=== PATIENT | male | born 1945 | race Caucasian/White ===

== ENCOUNTER 2020-10-09 15:11 | Inpatient (IN) | payer MEDICARE, OTHER ==
[~2020-10-09] VITALS: Ht 175.3 cm; Wt 136.7 kg
[2020-10-09 15:55] LABS: BASOPHILS % (AUTO) 0.3 % (0.0-5.0); EOSINOPHILS % (AUTO) 0.2 % (0.0-8.0); HEMATOCRIT 47.7 % (42-54); LYMPHOCYTES % (AUTO) 6.1 % (21.0-51.0); MEAN CORPUSCULAR HEMOGLOBIN 29.4 pg (27.0-33.0); MEAN CORPUSCULAR HGB CONC 33.5 g/dL (32.0-36.0); MEAN CORPUSCULAR VOLUME 87.7 fL (79-99); MONOCYTES % (AUTO) 5.5 % (3.0-13.0); NEUTROPHILS % (AUTO) 87.4 % (40.0-77.0); PLATELET COUNT (AUTO) 250 K/uL (130-400); RED BLOOD CELL COUNT(AUTO) 5.44 MIL/uL (4.50-6.20); RED CELL DISTRIBUTION WIDTH 13.8 % (11.0-15.5); WHITE BLOOD COUNT (AUTO) 18.3 K/uL (4.8-10.8)
[2020-10-09 15:59] LABS: APPEARANCE,URINE Clear (CLEAR); BILIRUBIN,URINE Negative (NEGATIVE); COLOR,URINE Yellow (YELLOW); GLUCOSE, URINE (UA) Negative (NEGATIVE); KETONES,URINE Negative (NEGATIVE); LEUKOCYTE ESTERASE ,URINE Negative (NEGATIVE); NITRATE,URINE Negative (NEGATIVE); OCCULT BLOOD,URINE Negative (NEGATIVE); PROTEIN,URINE POS 1+ mg/dL (NEGATIVE); UROBILINOGEN,URINE 0.2 mg/dL (0.2-1.0)
[2020-10-09 16:05] LABS: CREATININE 1.2 mg/dL (0.5-1.5); POTASSIUM 4.5 mmol/L (3.5-5.1)
[2020-10-09 16:06] LABS: BACTERIA,URINE Rare /HPF (None Seen); RBC,URINE 0-1 /HPF (0-1); SQUAMOUS EPITHELIAL CELL,UR Few /HPF (0-2); WBC,URINE 0-1 /HPF (0-1)
[2020-10-09 16:07] LABS: INR 1.12 (0.85-1.15); PROTHROMBIN TIME 11.9 SEC (9.6-11.6)
[2020-10-09 16:08] LABS: PARTIAL THROMBOPLASTIN TIME 27.4 SEC (26.3-35.5)
[2020-10-09 16:11] LABS: ALBUMIN 3.9 g/dL (3.5-5.0); BILIRUBIN,TOTAL 0.6 mg/dL (0.2-1.0); TOTAL PROTEIN, SERUM 8.7 g/dL (6.0-8.3)
[2020-10-09] MEDS ORDERED: MORPHINE 4 MG SYG ONE ×2 (16:52→19:03)
[2020-10-09] MEDS ORDERED: ONDANSETRON 4MG INJ ONE ×2 (16:52→19:06)
[2020-10-09 17:15] LABS: ABG BASE EXCESS -0.1 mmol/L (-2.0-3.0); ABG HCO3 24.3 mmol/L (21.0-28.0); ABG OXYGEN SATURATION 93.7 % (95.0-99.0); ABG PCO2 39 mmHg (35-48)
[2020-10-09] MEDS ORDERED: GUAIFENESIN-DM 200/20 MG 10 ML PO PRN (20:15)
[2020-10-09] MEDS: 0.9%NACL 1000ML 1,000 ML IV SCH (20:15)
[2020-10-09] MEDS: CEFTRIAXONE 1G VIAL IVP SCH (20:15)
[2020-10-09] MEDS ORDERED: ONDANSETRON 4MG INJ IV PRN (20:15)
[2020-10-09] MEDS ORDERED: NITROGLYCERIN 0.4 MG SL TAB SL PRN (20:15)
[2020-10-09] MEDS ORDERED: ACETAMINOPHEN 325 MG TAB PO PRN ×2 (20:15)
[2020-10-09] MEDS ORDERED: MORPHINE 2 MG SYG IV PRN (20:15)
[2020-10-09] MEDS: FAMOTIDINE 20MG VIAL IV SCH (21:00)
[2020-10-09] MEDS ORDERED: LISI40TA9 PO (22:41)
[2020-10-09] MEDS ORDERED: DILT360T14 PO (22:41)
[2020-10-09] MEDS ORDERED: TYL3B PO (22:41)
[2020-10-09] MEDS ORDERED: AEC81 PO (22:41)
[2020-10-09] MEDS ORDERED: ATEN25TA PO (22:41)
[2020-10-09] MEDS ORDERED: MORPHINE 2 MG SYG ONE (22:44)
[2020-10-09] MEDS: AZITHROMYCIN 500MG+NS 250ML 250 ML IV SCH (23:15)
[2020-10-09] MEDS ORDERED: DEXAMETHASONE SOD PHOSPHATE 10MG/ML 1ML VIAL ONE (23:28)
[2020-10-09] MEDS ORDERED: CEFTRIAXONE 1G VIAL ONE (23:28)
[2020-10-10] MEDS ORDERED: FAMOTIDINE 20MG VIAL IV ONE ×2 (02:45→22:17)
[2020-10-10] MEDS ORDERED: AZITHROMYCIN 500MG+NS 250ML 250 ML IV ONE (02:45)
[2020-10-10] MEDS ORDERED: 0.9%NACL 1000ML 1,000 ML IV ONE (02:49)
[2020-10-10 05:30] LABS: BASOPHILS % (AUTO) 0.2 % (0.0-5.0); HEMATOCRIT 43.4 % (42-54); LYMPHOCYTES % (AUTO) 3.9 % (21.0-51.0); MEAN CORPUSCULAR HEMOGLOBIN 29.1 pg (27.0-33.0); MEAN CORPUSCULAR HGB CONC 33.2 g/dL (32.0-36.0); MEAN CORPUSCULAR VOLUME 87.9 fL (79-99); MONOCYTES % (AUTO) 1.1 % (3.0-13.0); PLATELET COUNT (AUTO) 222 K/uL (130-400); RED BLOOD CELL COUNT(AUTO) 4.94 MIL/uL (4.50-6.20); RED CELL DISTRIBUTION WIDTH 13.9 % (11.0-15.5); WHITE BLOOD COUNT (AUTO) 19.1 K/uL (4.8-10.8)
[2020-10-10 06:24] LABS: HEMOGLOBIN A1C 6.1 % (4.0-6.0)
[2020-10-10 07:19] LABS: ALANINE AMINOTRANSFERASE 14 U/L (12-78); ALBUMIN 3.4 g/dL (3.5-5.0); ASPARTATE AMINOTRANSFERASE 16 U/L (10-37); BILIRUBIN,TOTAL 0.5 mg/dL (0.2-1.0); CARBON DIOXIDE 25 mmol/L (21-32); CHLORIDE 102 mmol/L (101-111); CHOLESTEROL 131 mg/dL (<200); CREATINE KINASE, TOTAL 106 U/L (21-232); CREATININE 1.1 mg/dL (0.5-1.5); GLOMERULAR FILTR. RATE CALC 70 mL/min (>60); GLUCOSE,RANDOM 152 mg/dL (70-105); HDL CHOLESTEROL 52 mg/dL (29-71); LDL DIRECT 71 mg/dL (0-99); MYOGLOBIN 87 ng/mL (10-92); POTASSIUM 4.8 mmol/L (3.5-5.1); SODIUM SERUM 139 mmol/L (136-145); THYROID STIMULATING HORMONE 0.38 uIU/mL (0.36-3.74); TOTAL PROTEIN, SERUM 6.9 g/dL (6.0-8.3); TRIGLYCERIDES 55 mg/dL (30-200); TROPONIN I < 0.04 ng/mL (0.00-0.06); UREA NITROGEN, BLOOD 19 mg/dL (7-18)
[2020-10-10] MEDS: CEFTRIAXONE 1G VIAL IVP SCH ×2 (08:15→20:15)
[2020-10-10] MEDS: DILTIAZEM 180MG SR CAP PO SCH (09:00)
[2020-10-10] MEDS: ASPIRIN 81 MG EC TAB PO SCH (09:00)
[2020-10-10] MEDS: ATENOLOL 25 MG TABLET PO SCH (09:00)
[2020-10-10] MEDS: LISINOPRIL 40 MG TABLET PO SCH (09:00)
[2020-10-10] MEDS: ENOXAPARIN SODIUM 30 MG/0.3 ML SQ SCH (09:00)
[2020-10-10] MEDS: FAMOTIDINE 20MG VIAL IV SCH ×2 (09:00→21:00)
[2020-10-10] MEDS: PANTOPRAZOLE 40 MG TAB DR PO SCH (12:30)
[2020-10-10 15:28] LABS: CRP QUANTITATIVE 230.5 mg/L (0.00-9.0)
[2020-10-10] MEDS: 0.9%NACL 1000ML 1,000 ML IV SCH (16:15)
[2020-10-10] MEDS ORDERED: PANTOPRAZOLE 40 MG TAB DR ONE (16:24)
[2020-10-10] MEDS ORDERED: ATENOLOL 25 MG TABLET ONE (16:24)
[2020-10-10] MEDS ORDERED: CEFTRIAXONE 1G VIAL ONE (22:16)
[2020-10-10] MEDS: AZITHROMYCIN 500MG+NS 250ML 250 ML IV SCH (23:15)
[2020-10-11] MEDS ORDERED: AZITHROMYCIN 500MG+NS 250ML 250 ML IV ONE (04:20)
[2020-10-11 05:02] LABS: BASOPHILS % (AUTO) 0.1 % (0.0-5.0); HEMATOCRIT 41.4 % (42-54); LYMPHOCYTES % (AUTO) 6.4 % (21.0-51.0); MEAN CORPUSCULAR HEMOGLOBIN 29.4 pg (27.0-33.0); MEAN CORPUSCULAR HGB CONC 33.3 g/dL (32.0-36.0); MEAN CORPUSCULAR VOLUME 88.1 fL (79-99); MONOCYTES % (AUTO) 3.9 % (3.0-13.0); PLATELET COUNT (AUTO) 221 K/uL (130-400); RED CELL DISTRIBUTION WIDTH 13.5 % (11.0-15.5); WHITE BLOOD COUNT (AUTO) 21.1 K/uL (4.8-10.8)
[2020-10-11 05:22] LABS: CARBON DIOXIDE 31 mmol/L (21-32); CHLORIDE 102 mmol/L (101-111); CREATININE 1.2 mg/dL (0.5-1.5); GLOMERULAR FILTR. RATE CALC 63 mL/min (>60); GLUCOSE,RANDOM 144 mg/dL (70-105); LACTATE DEHYDROGENASE 149 U/L (81-234); POTASSIUM 4.8 mmol/L (3.5-5.1); SODIUM SERUM 138 mmol/L (136-145); UREA NITROGEN, BLOOD 21 mg/dL (7-18)
[2020-10-11] MEDS: CEFTRIAXONE 1G VIAL IVP SCH ×2 (08:15→22:39)
[2020-10-11] MEDS ORDERED: ASPIRIN 81MG CHEW TAB ONE (08:43)
[2020-10-11] MEDS ORDERED: PANTOPRAZOLE 40 MG TAB DR ONE (08:44)
[2020-10-11] MEDS ORDERED: ENOXAPARIN SODIUM 30 MG/0.3 ML SQ ONE (08:44)
[2020-10-11] MEDS ORDERED: FAMOTIDINE 20MG VIAL IV ONE (08:45)
[2020-10-11] MEDS: FAMOTIDINE 20MG VIAL IV SCH ×2 (09:00→22:39)
[2020-10-11] MEDS: ATENOLOL 25 MG TABLET PO SCH (09:00)
[2020-10-11] MEDS: PANTOPRAZOLE 40 MG TAB DR PO SCH (09:00)
[2020-10-11] MEDS: LISINOPRIL 40 MG TABLET PO SCH (09:00)
[2020-10-11] MEDS: ASPIRIN 81 MG EC TAB PO SCH (09:00)
[2020-10-11] MEDS: DILTIAZEM 180MG SR CAP PO SCH (09:00)
[2020-10-11] MEDS: ENOXAPARIN SODIUM 30 MG/0.3 ML SQ SCH (09:00)
[2020-10-11] MEDS ORDERED: CEFTRIAXONE 1G VIAL ONE (11:41)
[2020-10-11] MEDS ORDERED: 0.9%NACL 1000ML 1,000 ML IV ONE (11:41)
[2020-10-11] MEDS: 0.9%NACL 1000ML 1,000 ML IV SCH (12:15)
[2020-10-11] MEDS ORDERED: ATENOLOL 25 MG TABLET ONE (17:04)
[2020-10-11] MEDS ORDERED: LACTULOSE 20 GM/30 ML UDCUP ONE (17:21)
[2020-10-11] MEDS ORDERED: ACETAMINOPHEN 325 MG TAB ONE (17:22)
[2020-10-11] MEDS ORDERED: LACTULOSE 20 GM/30 ML UDCUP PO PRN (18:00)
[2020-10-11 21:55] VITALS: BP 128/73
[2020-10-11] MEDS: AZITHROMYCIN 500MG+NS 250ML 250 ML IV SCH (22:56)
[2020-10-12 03:52] VITALS: BP 103/60
[2020-10-12 05:20] LABS: BASOPHILS % (AUTO) 0.1 % (0.0-5.0); HEMATOCRIT 40.3 % (42-54); LYMPHOCYTES % (AUTO) 9.2 % (21.0-51.0); MEAN CORPUSCULAR HEMOGLOBIN 28.8 pg (27.0-33.0); MEAN CORPUSCULAR HGB CONC 32.3 g/dL (32.0-36.0); MEAN CORPUSCULAR VOLUME 89.4 fL (79-99); MONOCYTES % (AUTO) 5.7 % (3.0-13.0); NEUTROPHILS % (AUTO) 84.3 % (40.0-77.0); PLATELET COUNT (AUTO) 229 K/uL (130-400); RED BLOOD CELL COUNT(AUTO) 4.51 MIL/uL (4.50-6.20); RED CELL DISTRIBUTION WIDTH 13.7 % (11.0-15.5); WHITE BLOOD COUNT (AUTO) 14.8 K/uL (4.8-10.8)
[2020-10-12 05:39] LABS: CREATININE 1.2 mg/dL (0.5-1.5); CRP QUANTITATIVE 49.2 mg/L (0.00-9.0); POTASSIUM 4.1 mmol/L (3.5-5.1)
[2020-10-12 08:03] VITALS: BP 141/73
[2020-10-12] MEDS: CEFTRIAXONE 1G VIAL IVP SCH ×2 (09:42→20:36)
[2020-10-12] MEDS: DILTIAZEM 180MG SR CAP PO SCH (09:43)
[2020-10-12] MEDS: ATENOLOL 25 MG TABLET PO SCH (09:43)
[2020-10-12] MEDS: PANTOPRAZOLE 40 MG TAB DR PO SCH (09:43)
[2020-10-12] MEDS: LISINOPRIL 40 MG TABLET PO SCH (09:43)
[2020-10-12] MEDS: ASPIRIN 81 MG EC TAB PO SCH (09:44)
[2020-10-12] MEDS: 0.9%NACL 1000ML 1,000 ML IV SCH (09:44)
[2020-10-12] MEDS: ENOXAPARIN SODIUM 30 MG/0.3 ML SQ SCH (09:44)
[2020-10-12] MEDS: FAMOTIDINE 20MG VIAL IV SCH ×2 (10:21→20:36)
[2020-10-12 11:05] VITALS: BP 138/71
[2020-10-12 16:30] VITALS: BP 132/70
[2020-10-12 19:52] VITALS: BP 126/61
[2020-10-12] MEDS: AZITHROMYCIN 500MG+NS 250ML 250 ML IV SCH (22:38)
[2020-10-12 23:31] VITALS: BP 138/67
[2020-10-13] MEDS: 0.9%NACL 1000ML 1,000 ML IV SCH (02:19)
[2020-10-13 03:59] VITALS: BP 120/58
[2020-10-13 05:29] LABS: BASOPHILS % (AUTO) 0.4 % (0.0-5.0); EOSINOPHILS % (AUTO) 0.6 % (0.0-8.0); HEMATOCRIT 40.5 % (42-54); LYMPHOCYTES % (AUTO) 20.4 % (21.0-51.0); MEAN CORPUSCULAR HEMOGLOBIN 28.5 pg (27.0-33.0); MEAN CORPUSCULAR HGB CONC 32.3 g/dL (32.0-36.0); MONOCYTES % (AUTO) 7.3 % (3.0-13.0); NEUTROPHILS % (AUTO) 69.8 % (40.0-77.0); PLATELET COUNT (AUTO) 234 K/uL (130-400); RED CELL DISTRIBUTION WIDTH 13.8 % (11.0-15.5); WHITE BLOOD COUNT (AUTO) 10.8 K/uL (4.8-10.8)
[2020-10-13 06:06] LABS: BILIRUBIN,TOTAL 0.2 mg/dL (0.2-1.0); CREATININE 1.1 mg/dL (0.5-1.5); CRP QUANTITATIVE 24.1 mg/L (0.00-9.0); POTASSIUM 3.7 mmol/L (3.5-5.1); TOTAL PROTEIN, SERUM 6.6 g/dL (6.0-8.3)
[2020-10-13 08:39] VITALS: BP 115/51
[2020-10-13] MEDS ORDERED: AZIT500T4 PO (08:54)
[2020-10-13] MEDS ORDERED: CEPH500B PO (08:54)
[2020-10-13] MEDS: DILTIAZEM 180MG SR CAP PO SCH (09:00)
[2020-10-13] MEDS: LISINOPRIL 40 MG TABLET PO SCH (09:00)
[2020-10-13] MEDS: ATENOLOL 25 MG TABLET PO SCH (09:00)
[2020-10-13] MEDS: PANTOPRAZOLE 40 MG TAB DR PO SCH (09:34)
[2020-10-13] MEDS: FAMOTIDINE 20MG VIAL IV SCH (09:34)
[2020-10-13] MEDS: ASPIRIN 81 MG EC TAB PO SCH (09:34)
[2020-10-13] MEDS: CEFTRIAXONE 1G VIAL IVP SCH (09:34)
[2020-10-13] MEDS: ENOXAPARIN SODIUM 30 MG/0.3 ML SQ SCH (09:36)
== END 2020-10-13 12:00 | disposition home or self-care (01) | DRG 193 ==
LOC: EDH 15:11 → EDHIP 20:02 → 3AH 10-11 21:13
PROVIDERS: ADMIT Internal Medicine; ATTEND Internal Medicine
PROC: 5A09357 Assistance with Respiratory Ventilation, Less than 24 Consecutive Hours, Continuous Positive Airway Pressure (ICD-10-PCS; principal; 2020-10-12)
PROC: 5A09357 Assistance with Respiratory Ventilation, Less than 24 Consecutive Hours, Continuous Positive Airway Pressure (ICD-10-PCS; 2020-10-13)
DX: R09.1 Pleurisy (principal); J15.6 Pneumonia due to other Gram-negative bacteria; Z68.41 Body mass index [BMI] 40.0-44.9, adult; J98.11 Atelectasis; J40 Bronchitis, not specified as acute or chronic; E66.01 Morbid (severe) obesity due to excess calories; E78.5 Hyperlipidemia, unspecified; N20.0 Calculus of kidney; G47.33 Obstructive sleep apnea (adult) (pediatric); I45.10 Unspecified right bundle-branch block; I48.0 Paroxysmal atrial fibrillation; K21.9 Gastro-esophageal reflux disease without esophagitis; K57.90 Diverticulosis of intestine, part unspecified, without perforation or abscess without bleeding; Z90.49 Acquired absence of other specified parts of digestive tract; Z20.822 Contact with and (suspected) exposure to COVID-19
CPT/HCPCS: 36415; 36600; 71045; 71250; 74176; 78582; 80048; 80053; 80061; 81001; 82550; 82728; 82803; 83036; 83605; 83615; 83735; 83874; 83880; 84145; 84443; 84484; 85025; 85060; 85378; 85610; 85730; 86140; 87040; 87426; 88184; 88185; 93005; 93306; 93356; 93970; A9540; A9558; G0378; J0456; J0696; J1100; J1650; J2270; J2405; J3490; J7030; U0003

== ENCOUNTER 2020-10-26 10:57 | Inpatient (IN) | payer MEDICARE ==
[~2020-10-26] VITALS: Ht 175.3 cm; Wt 136.5 kg
[~2020-10-26 10:57] MED LIST: AEC81 PO; ATEN25TA PO; AZIT500T4 PO; CEPH500B PO; DILT360T14 PO; LISI40TA9 PO; TYL3B PO
[2020-10-26 11:45] LABS: BASOPHILS % (AUTO) 0.4 % (0.0-5.0); EOSINOPHILS % (AUTO) 2.1 % (0.0-8.0); HEMATOCRIT 44.6 % (42-54); LYMPHOCYTES % (AUTO) 15.7 % (21.0-51.0); MEAN CORPUSCULAR HEMOGLOBIN 28.5 pg (27.0-33.0); MEAN CORPUSCULAR HGB CONC 33.4 g/dL (32.0-36.0); MEAN CORPUSCULAR VOLUME 85.3 fL (79-99); MONOCYTES % (AUTO) 5.6 % (3.0-13.0); NEUTROPHILS % (AUTO) 75.8 % (40.0-77.0); PLATELET COUNT (AUTO) 238 K/uL (130-400); RED BLOOD CELL COUNT(AUTO) 5.23 MIL/uL (4.50-6.20); RED CELL DISTRIBUTION WIDTH 13.5 % (11.0-15.5); WHITE BLOOD COUNT (AUTO) 4.8 K/uL (4.8-10.8)
[2020-10-26 11:52] LABS: CARBON DIOXIDE 29 mmol/L (21-32); CHLORIDE 103 mmol/L (101-111); GLOMERULAR FILTR. RATE CALC 78 mL/min (>60); GLUCOSE,RANDOM 142 mg/dL (70-105); POTASSIUM 3.1 mmol/L (3.5-5.1); SODIUM SERUM 142 mmol/L (136-145); UREA NITROGEN, BLOOD 18 mg/dL (7-18)
[2020-10-26 11:57] LABS: INR 1.19 (0.85-1.15); PROTHROMBIN TIME 12.5 SEC (9.6-11.6)
[2020-10-26 11:58] LABS: PARTIAL THROMBOPLASTIN TIME 31.3 SEC (26.3-35.5)
[2020-10-26 12:04] LABS: ALANINE AMINOTRANSFERASE 35 U/L (12-78); ALBUMIN 3.1 g/dL (3.5-5.0); ASPARTATE AMINOTRANSFERASE 36 U/L (10-37); BILIRUBIN,TOTAL 0.4 mg/dL (0.2-1.0); CREATINE KINASE, TOTAL 166 U/L (21-232); MYOGLOBIN 139 ng/mL (10-92); TOTAL PROTEIN, SERUM 7.6 g/dL (6.0-8.3); TROPONIN I < 0.04 ng/mL (0.00-0.06)
[2020-10-26 12:42] LABS: ERYTHROCYTE SEDIMENTATION RATE 42 MM/HR (0-20)
[2020-10-26] MEDS ORDERED: ALBUTEROL INHALER 90MCG/INH IH ONE (13:05)
[2020-10-26] MEDS ORDERED: AZITHROMYCIN 500MG+NS 250ML 250 ML IV ONE (13:05)
[2020-10-26] MEDS ORDERED: SOLU-MEDROL 40MG VIAL ONE (13:05)
[2020-10-26] MEDS ORDERED: ENOXAPARIN SODIUM 120 MG/0.8ML SQ ONE (13:06)
[2020-10-26] MEDS ORDERED: FAMOTIDINE 20MG VIAL IV ONE (13:07)
[2020-10-26] MEDS ORDERED: GUAIFENESIN-DM 200/20 MG 10 ML PO PRN (17:45)
[2020-10-26] MEDS ORDERED: DOXYCYCLINE 100MG+NS 250ML IV SCH (17:45)
[2020-10-26] MEDS ORDERED: ONDANSETRON 4MG INJ IVP PRN (17:45)
[2020-10-26] MEDS: CEFTRIAXONE 1G VIAL IVP SCH (17:45)
[2020-10-26] MEDS ORDERED: ACETAMINOPHEN 325 MG TAB PO PRN (17:45)
[2020-10-26] MEDS: DEXAMETHASONE SOD PHOSPHATE 4 MG/ML 1ML VIAL IVP SCH (17:45)
[2020-10-26] MEDS ORDERED: ERGOCALCIFEROL (VITAMIN D2) 50,000 UNIT CAPSULE PO ONE (17:45)
[2020-10-26] MEDS ORDERED: PHARMACY COMMUNICATION MISC SCH (18:00)
[2020-10-26] MEDS: PHARMACY COMMUNICATION MISC SCH (18:45)
[2020-10-26 18:49] LABS: CREATINE KINASE, TOTAL 146 U/L (21-232); MYOGLOBIN 99 ng/mL (10-92); TROPONIN I < 0.04 ng/mL (0.00-0.06)
[2020-10-26] MEDS ORDERED: DOXYCYCLINE 100MG+NS 250ML 250 ML IV ONE (20:04)
[2020-10-26] MEDS ORDERED: ACETYLCYSTEINE 600 MG CAPSULE ONE (20:04)
[2020-10-26] MEDS ORDERED: CEFTRIAXONE 1G VIAL ONE (20:04)
[2020-10-26] MEDS ORDERED: ERGOCALCIFEROL (VITAMIN D2) 50,000 UNIT CAPSULE ONE (20:04)
[2020-10-26] MEDS ORDERED: FAMOTIDINE 20MG TAB ONE (20:04)
[2020-10-26] MEDS ORDERED: PHARMACY COMMUNICATION**REMDESIVIR ORDER MISC SCH (20:15)
[2020-10-26] MEDS: DOXYCYCLINE 100MG+NS 250ML 250 ML IV SCH (21:00)
[2020-10-26] MEDS: ACETYLCYSTEINE 600 MG CAPSULE PO SCH (21:00)
[2020-10-26] MEDS: FAMOTIDINE 20MG TAB PO SCH (21:00)
[2020-10-27] MEDS ORDERED: 0.9% NACL 250ML 250 ML IV ONE (00:58)
[2020-10-27 03:31] LABS: CREATINE KINASE, TOTAL 141 U/L (21-232); MYOGLOBIN 102 ng/mL (10-92); TROPONIN I < 0.04 ng/mL (0.00-0.06)
[2020-10-27 05:18] LABS: HEMATOCRIT 42.5 % (42-54); LYMPHOCYTES % (AUTO) 19.1 % (21.0-51.0); MEAN CORPUSCULAR HEMOGLOBIN 28.2 pg (27.0-33.0); MEAN CORPUSCULAR HGB CONC 33.4 g/dL (32.0-36.0); MEAN CORPUSCULAR VOLUME 84.5 fL (79-99); MONOCYTES % (AUTO) 2.8 % (3.0-13.0); NEUTROPHILS % (AUTO) 77.8 % (40.0-77.0); PLATELET COUNT (AUTO) 251 K/uL (130-400); RED BLOOD CELL COUNT(AUTO) 5.03 MIL/uL (4.50-6.20); RED CELL DISTRIBUTION WIDTH 13.3 % (11.0-15.5); WHITE BLOOD COUNT (AUTO) 3.3 K/uL (4.8-10.8)
[2020-10-27 05:39] LABS: ALBUMIN 2.9 g/dL (3.5-5.0); BILIRUBIN,TOTAL 0.4 mg/dL (0.2-1.0); CREATININE 0.9 mg/dL (0.5-1.5); CRP QUANTITATIVE 58.6 mg/L (0.00-9.0); POTASSIUM 3.6 mmol/L (3.5-5.1); TOTAL PROTEIN, SERUM 7.5 g/dL (6.0-8.3)
[2020-10-27] MEDS: CEFTRIAXONE 1G VIAL IVP SCH ×2 (05:45→17:45)
[2020-10-27] MEDS ORDERED: COMPOUND IV REFRIGERATED 1 EACH IVSOLN MISC PRN (08:30)
[2020-10-27] MEDS ORDERED: REMDESIVIR (EUA) 520 200 MG in 0.9% NACL 250ML 250 ML IV ONE (08:30)
[2020-10-27] MEDS: ACETYLCYSTEINE 600 MG CAPSULE PO SCH ×2 (09:00→21:25)
[2020-10-27] MEDS: ASCORBIC ACID 500 MG TAB PO SCH (09:00)
[2020-10-27] MEDS ORDERED: ENOXAPARIN SODIUM 40 MG/0.4 ML SYRINGE SQ SCH (09:00)
[2020-10-27] MEDS: ZINC SULFATE 220 CAPSULE PO SCH (09:00)
[2020-10-27] MEDS: DOXYCYCLINE 100MG+NS 250ML 250 ML IV SCH ×2 (09:00→21:25)
[2020-10-27] MEDS ORDERED: ASPI-1443 PO (09:16)
[2020-10-27] MEDS ORDERED: DILT360C32 PO (09:16)
[2020-10-27] MEDS ORDERED: LISI10TA24 PO (09:16)
[2020-10-27] MEDS ORDERED: ATEN25TA PO (09:16)
[2020-10-27] MEDS ORDERED: ACET1TAB25 PO (09:16)
[2020-10-27] MEDS ORDERED: VALA100031 PO (09:18)
[2020-10-27] MEDS ORDERED: FAMC500T8 PO (09:18)
[2020-10-27] MEDS ORDERED: LISI40TA9 PO (09:18)
[2020-10-27] MEDS ORDERED: VALACYCLOVIR 1000 MG PO SCH (09:30)
[2020-10-27] MEDS ORDERED: FAMCICLOVIR 500 MG PO SCH (09:30)
[2020-10-27] MEDS: DILTIAZEM 180MG SR CAP PO SCH (09:45)
[2020-10-27] MEDS ORDERED: ACETYLCYSTEINE 600 MG CAPSULE ONE (09:50)
[2020-10-27] MEDS ORDERED: DEXAMETHASONE SOD PHOSPHATE 4 MG/ML 1ML VIAL ONE (09:50)
[2020-10-27] MEDS ORDERED: ASCORBIC ACID 500 MG TAB ONE (09:50)
[2020-10-27] MEDS ORDERED: ZINC SULFATE 220 CAPSULE ONE (09:51)
[2020-10-27] MEDS ORDERED: ENOXAPARIN SODIUM 40 MG/0.4 ML SYRINGE SQ ONE (09:51)
[2020-10-27] MEDS ORDERED: DOXYCYCLINE 100MG+NS 250ML 250 ML IV ONE (09:51)
[2020-10-27 10:20] LABS: CREATINE KINASE, TOTAL 129 U/L (21-232); MYOGLOBIN 127 ng/mL (10-92); TROPONIN I < 0.04 ng/mL (0.00-0.06)
[2020-10-27] MEDS ORDERED: ASPIRIN 81 MG EC TAB ONE (12:25)
[2020-10-27] MEDS ORDERED: CEFTRIAXONE 1G VIAL ONE (17:11)
[2020-10-27] MEDS: DEXAMETHASONE SOD PHOSPHATE 4 MG/ML 1ML VIAL IVP SCH (17:45)
[2020-10-27 18:40] VITALS: BP 139/82
[2020-10-27 20:54] VITALS: BP 136/70
[2020-10-27] MEDS ORDERED: ENOXAPARIN SODIUM 0.5 MG/KG EACH SQ SCH (21:00)
[2020-10-27] MEDS: FAMOTIDINE 20MG TAB PO SCH (21:24)
[2020-10-27] MEDS: ENOXAPARIN SODIUM 80 MG/0.8 ML SQ SCH (21:27)
[2020-10-27 23:47] VITALS: BP 127/61
[2020-10-28 03:58] VITALS: BP 122/69
[2020-10-28 04:28] LABS: BASOPHILS % (AUTO) 0.1 % (0.0-5.0); HEMATOCRIT 40.5 % (42-54); LYMPHOCYTES % (AUTO) 7.8 % (21.0-51.0); MEAN CORPUSCULAR HEMOGLOBIN 28.3 pg (27.0-33.0); MEAN CORPUSCULAR HGB CONC 33.1 g/dL (32.0-36.0); MEAN CORPUSCULAR VOLUME 85.4 fL (79-99); MONOCYTES % (AUTO) 4.4 % (3.0-13.0); NEUTROPHILS % (AUTO) 87.2 % (40.0-77.0); PLATELET COUNT (AUTO) 276 K/uL (130-400); RED BLOOD CELL COUNT(AUTO) 4.74 MIL/uL (4.50-6.20); RED CELL DISTRIBUTION WIDTH 13.2 % (11.0-15.5); WHITE BLOOD COUNT (AUTO) 10.2 K/uL (4.8-10.8)
[2020-10-28 04:52] LABS: ALBUMIN 2.6 g/dL (3.5-5.0); BILIRUBIN,TOTAL 0.3 mg/dL (0.2-1.0); CRP QUANTITATIVE 29.8 mg/L (0.00-9.0); POTASSIUM 3.7 mmol/L (3.5-5.1); TOTAL PROTEIN, SERUM 6.8 g/dL (6.0-8.3)
[2020-10-28] MEDS: CEFTRIAXONE 1G VIAL IVP SCH ×2 (05:13→16:55)
[2020-10-28] MEDS: REMDESIVIR LABS MISC SCH (06:00)
[2020-10-28 08:13] VITALS: BP 133/72
[2020-10-28] MEDS: PHARMACY COMMUNICATION MISC SCH ×3 (08:21→13:53)
[2020-10-28] MEDS: DOXYCYCLINE 100MG+NS 250ML 250 ML IV SCH ×2 (10:09→21:12)
[2020-10-28] MEDS: DILTIAZEM 180MG SR CAP PO SCH (10:10)
[2020-10-28] MEDS: ASPIRIN 81 MG EC TAB PO SCH (10:10)
[2020-10-28] MEDS: ENOXAPARIN SODIUM 80 MG/0.8 ML SQ SCH ×2 (10:11→21:14)
[2020-10-28] MEDS: ZINC SULFATE 220 CAPSULE PO SCH (10:11)
[2020-10-28] MEDS: ASCORBIC ACID 500 MG TAB PO SCH (10:11)
[2020-10-28] MEDS: ACETYLCYSTEINE 600 MG CAPSULE PO SCH ×2 (10:12→21:12)
[2020-10-28 12:18] VITALS: BP 144/75
[2020-10-28] MEDS: REMDESIVIR (EUA) 520 100 MG in 0.9% NACL 250ML 250 ML IV SCH (13:16)
[2020-10-28 16:00] VITALS: BP 140/78
[2020-10-28] MEDS: DEXAMETHASONE SOD PHOSPHATE 4 MG/ML 1ML VIAL IVP SCH (16:54)
[2020-10-28 20:24] VITALS: BP 165/78
[2020-10-28] MEDS: FAMOTIDINE 20MG TAB PO SCH (21:12)
[2020-10-29 04:42] VITALS: BP 132/62
[2020-10-29 05:19] LABS: BASOPHILS % (AUTO) 0.1 % (0.0-5.0); HEMATOCRIT 40.1 % (42-54); LYMPHOCYTES % (AUTO) 9.2 % (21.0-51.0); MEAN CORPUSCULAR HEMOGLOBIN 28.4 pg (27.0-33.0); MEAN CORPUSCULAR HGB CONC 33.2 g/dL (32.0-36.0); MEAN CORPUSCULAR VOLUME 85.7 fL (79-99); MONOCYTES % (AUTO) 3.5 % (3.0-13.0); NEUTROPHILS % (AUTO) 86.2 % (40.0-77.0); PLATELET COUNT (AUTO) 259 K/uL (130-400); RED BLOOD CELL COUNT(AUTO) 4.68 MIL/uL (4.50-6.20); RED CELL DISTRIBUTION WIDTH 13.2 % (11.0-15.5); WHITE BLOOD COUNT (AUTO) 9.1 K/uL (4.8-10.8)
[2020-10-29 05:35] LABS: ALBUMIN 2.8 g/dL (3.5-5.0); BILIRUBIN,TOTAL 0.3 mg/dL (0.2-1.0); CREATININE 0.9 mg/dL (0.5-1.5); CRP QUANTITATIVE 17.4 mg/L (0.00-9.0); POTASSIUM 3.5 mmol/L (3.5-5.1); TOTAL PROTEIN, SERUM 6.7 g/dL (6.0-8.3)
[2020-10-29] MEDS: REMDESIVIR LABS MISC SCH ×2 (06:00→19:25)
[2020-10-29] MEDS: CEFTRIAXONE 1G VIAL IVP SCH ×2 (06:04→17:57)
[2020-10-29 07:00] VITALS: BP 114/54
[2020-10-29] MEDS: ENOXAPARIN SODIUM 80 MG/0.8 ML SQ SCH ×2 (09:00→19:58)
[2020-10-29] MEDS: ASPIRIN 81 MG EC TAB PO SCH (09:01)
[2020-10-29] MEDS: ACETYLCYSTEINE 600 MG CAPSULE PO SCH ×2 (09:01→19:58)
[2020-10-29] MEDS: DILTIAZEM 180MG SR CAP PO SCH (09:01)
[2020-10-29] MEDS: ZINC SULFATE 220 CAPSULE PO SCH (09:01)
[2020-10-29] MEDS: ASCORBIC ACID 500 MG TAB PO SCH (09:01)
[2020-10-29] MEDS: DOXYCYCLINE 100MG+NS 250ML 250 ML IV SCH ×2 (09:01→19:58)
[2020-10-29 11:00] VITALS: BP 181/84
[2020-10-29 12:14] VITALS: BP 172/82
[2020-10-29] MEDS: REMDESIVIR (EUA) 520 100 MG in 0.9% NACL 250ML 250 ML IV SCH (13:10)
[2020-10-29 15:00] VITALS: BP 132/61
[2020-10-29] MEDS ORDERED: 0.9%NACL 50ML 50 ML IV ONE (16:10)
[2020-10-29] MEDS: DEXAMETHASONE SOD PHOSPHATE 4 MG/ML 1ML VIAL IVP SCH (17:57)
[2020-10-29] MEDS: PHARMACY COMMUNICATION MISC SCH ×2 (18:45→19:25)
[2020-10-29] MEDS: FAMOTIDINE 20MG TAB PO SCH (19:58)
[2020-10-29 20:17] VITALS: BP 154/74
[2020-10-30 00:33] VITALS: BP 150/70
[2020-10-30 04:35] VITALS: BP 134/66
[2020-10-30 05:05] LABS: BASOPHILS % (AUTO) 0.3 % (0.0-5.0); HEMATOCRIT 39.6 % (42-54); LYMPHOCYTES % (AUTO) 10.5 % (21.0-51.0); MEAN CORPUSCULAR HEMOGLOBIN 28.7 pg (27.0-33.0); MEAN CORPUSCULAR HGB CONC 33.3 g/dL (32.0-36.0); MEAN CORPUSCULAR VOLUME 86.1 fL (79-99); MONOCYTES % (AUTO) 3.7 % (3.0-13.0); NEUTROPHILS % (AUTO) 82.9 % (40.0-77.0); PLATELET COUNT (AUTO) 294 K/uL (130-400); RED CELL DISTRIBUTION WIDTH 13.3 % (11.0-15.5); WHITE BLOOD COUNT (AUTO) 9.6 K/uL (4.8-10.8)
[2020-10-30 05:29] LABS: ALBUMIN 2.9 g/dL (3.5-5.0); BILIRUBIN,TOTAL 0.3 mg/dL (0.2-1.0); CREATININE 0.9 mg/dL (0.5-1.5); CRP QUANTITATIVE 5.2 mg/L (0.00-9.0); POTASSIUM 3.9 mmol/L (3.5-5.1); TOTAL PROTEIN, SERUM 6.3 g/dL (6.0-8.3)
[2020-10-30 08:00] VITALS: BP 141/80
[2020-10-30] MEDS: ZINC SULFATE 220 CAPSULE PO SCH (09:11)
[2020-10-30] MEDS: DILTIAZEM 180MG SR CAP PO SCH (09:11)
[2020-10-30] MEDS: ASCORBIC ACID 500 MG TAB PO SCH (09:11)
[2020-10-30] MEDS: ASPIRIN 81 MG EC TAB PO SCH (09:11)
[2020-10-30] MEDS: ENOXAPARIN SODIUM 80 MG/0.8 ML SQ SCH ×2 (09:12→21:52)
[2020-10-30] MEDS: PHARMACY COMMUNICATION MISC SCH ×4 (10:45→19:28)
[2020-10-30 12:00] VITALS: BP 129/97
[2020-10-30] MEDS: REMDESIVIR (EUA) 520 100 MG in 0.9% NACL 250ML 250 ML IV SCH (13:34)
[2020-10-30 16:05] VITALS: BP 126/55
[2020-10-30] MEDS: DEXAMETHASONE SOD PHOSPHATE 4 MG/ML 1ML VIAL IVP SCH (16:36)
[2020-10-30 21:20] VITALS: BP 105/63
[2020-10-30] MEDS: FAMOTIDINE 20MG TAB PO SCH (22:01)
[2020-10-31 00:21] VITALS: BP 138/62
[2020-10-31 04:51] VITALS: BP 139/51
[2020-10-31 05:39] LABS: BASOPHILS % (AUTO) 0.2 % (0.0-5.0); HEMATOCRIT 40.6 % (42-54); LYMPHOCYTES % (AUTO) 11.2 % (21.0-51.0); MEAN CORPUSCULAR HGB CONC 32.5 g/dL (32.0-36.0); NEUTROPHILS % (AUTO) 79.1 % (40.0-77.0); PLATELET COUNT (AUTO) 273 K/uL (130-400); RED BLOOD CELL COUNT(AUTO) 4.72 MIL/uL (4.50-6.20); RED CELL DISTRIBUTION WIDTH 13.3 % (11.0-15.5)
[2020-10-31 06:12] LABS: ALANINE AMINOTRANSFERASE 83 U/L (12-78); ALBUMIN 2.9 g/dL (3.5-5.0); ASPARTATE AMINOTRANSFERASE 41 U/L (10-37); BILIRUBIN,TOTAL 0.3 mg/dL (0.2-1.0); CARBON DIOXIDE 32 mmol/L (21-32); CHLORIDE 105 mmol/L (101-111); GLOMERULAR FILTR. RATE CALC 78 mL/min (>60); GLUCOSE,RANDOM 161 mg/dL (70-105); SODIUM SERUM 144 mmol/L (136-145); UREA NITROGEN, BLOOD 22 mg/dL (7-18)
[2020-10-31 06:13] LABS: CRP QUANTITATIVE < 2.00 mg/L (0.00-9.0)
[2020-10-31 07:00] VITALS: BP 153/63
[2020-10-31] MEDS: ZINC SULFATE 220 CAPSULE PO SCH (08:18)
[2020-10-31] MEDS: ASPIRIN 81 MG EC TAB PO SCH (08:18)
[2020-10-31] MEDS: ASCORBIC ACID 500 MG TAB PO SCH (08:18)
[2020-10-31] MEDS: DILTIAZEM 180MG SR CAP PO SCH (08:19)
[2020-10-31] MEDS: ENOXAPARIN SODIUM 80 MG/0.8 ML SQ SCH (08:20)
[2020-10-31 11:00] VITALS: BP 141/77
[2020-10-31] MEDS ORDERED: PANT40TA55 PO (11:37)
[2020-10-31] MEDS ORDERED: DEXA6TAB PO (11:37)
[2020-10-31] MEDS: REMDESIVIR (EUA) 520 100 MG in 0.9% NACL 250ML 250 ML IV SCH (12:05)
== END 2020-10-31 16:14 | disposition home or self-care (01) | DRG 177 ==
LOC: EDH 10:57 → EDHIP 14:04 → 2AH 10-27 18:43
PROVIDERS: ADMIT Hospitalist; ATTEND Hospitalist
PROC: XW13325 Transfusion of Convalescent Plasma (Nonautologous) into Peripheral Vein, Percutaneous Approach, New Technology Group 5 (ICD-10-PCS; 2020-10-27)
PROC: 5A09357 Assistance with Respiratory Ventilation, Less than 24 Consecutive Hours, Continuous Positive Airway Pressure (ICD-10-PCS; 2020-10-27)
PROC: 5A09357 Assistance with Respiratory Ventilation, Less than 24 Consecutive Hours, Continuous Positive Airway Pressure (ICD-10-PCS; 2020-10-28)
PROC: 5A09357 Assistance with Respiratory Ventilation, Less than 24 Consecutive Hours, Continuous Positive Airway Pressure (ICD-10-PCS; 2020-10-30)
PROC: XW033E5 Introduction of Remdesivir Anti-infective into Peripheral Vein, Percutaneous Approach, New Technology Group 5 (ICD-10-PCS; principal; 2020-10-31)
PROC: 5A09357 Assistance with Respiratory Ventilation, Less than 24 Consecutive Hours, Continuous Positive Airway Pressure (ICD-10-PCS; 2020-10-31)
DX: U07.1 COVID-19 (principal); J96.01 Acute respiratory failure with hypoxia; J12.82 Pneumonia due to coronavirus disease 2019; Z68.41 Body mass index [BMI] 40.0-44.9, adult; I48.20 Chronic atrial fibrillation, unspecified; D68.59 Other primary thrombophilia; I10 Essential (primary) hypertension; E66.01 Morbid (severe) obesity due to excess calories; I25.10 Atherosclerotic heart disease of native coronary artery without angina pectoris; G47.33 Obstructive sleep apnea (adult) (pediatric); K21.9 Gastro-esophageal reflux disease without esophagitis; E11.65 Type 2 diabetes mellitus with hyperglycemia; T38.0X5A Adverse effect of glucocorticoids and synthetic analogues, initial encounter; Y92.89 Other specified places as the place of occurrence of the external cause; Z79.899 Other long term (current) drug therapy; Z83.3 Family history of diabetes mellitus; Z82.49 Family history of ischemic heart disease and other diseases of the circulatory system; Z90.49 Acquired absence of other specified parts of digestive tract; Z79.82 Long term (current) use of aspirin
CPT/HCPCS: 36415; 71045; 80053; 82550; 82728; 82948; 83605; 83615; 83874; 84145; 84484; 85025; 85378; 85610; 85651; 85730; 86140; 86900; 86901; 86927; 87040; 87426; 93005; 94660; 94760; G0378; J0456; J0696; J1100; J1650; J2920; J3490; J7050